=== PATIENT | male | born 1970 | race American Indian/Alaskan Native ===

== ENCOUNTER 2016-11-26 13:43 | Emergency (ER) | payer SELFPAY ==
--- NOTE | 2016-11-26 14:40 | Emergency Department Report ---
Chief Complaint: Extremity Injury, Lower Stated Complaint: RT FOOT PAIN Time Seen by Provider: 11/26/16 14:29 - HPI History of Present Illness: pt c/o foot pain, pt states he has a hx of gout - ROS Review of Systems: + knee pain - Exam Vital Signs: Vital Signs 11/26/16 14:23 Temperature 97.8 F Pulse Rate 60 Respiratory 18 Rate Blood Pressure 134/94 O2 Sat by Pulse 100 Oximetry Physical Exam: steady gait in triage MSE screening note: Focused history and physical exam performed. Due to findings the following was ordered: ED Disposition for MSE Condition: Stable
[2016-11-26] MEDS ORDERED: MOTRIN PO ONE (18:46)
--- NOTE | 2016-11-26 19:43 | XRay Report ---
FINAL REPORT EXAM: XR FOOT 3+V RT HISTORY: RIGHT FOOT pain with swelling TECHNIQUE: 3 views of right foot. PRIORS: None. FINDINGS: Diffuse osteopenia and degenerative change in the midfoot and great toe MTP joint. Mild plantar calcaneal spurring. Small and well-corticated, ossific density adjacent to the medial malleolar tip may represent old avulsion injury versus unfused or accessory ossicle. No apparent fracture or dislocation. Soft tissues grossly unremarkable. IMPRESSION: 1. No acute osseous abnormality. 2. Degenerative changes.
--- NOTE | 2016-11-26 20:05 | XRay Report ---
FINAL REPORT EXAM: XR KNEE 3V RT HISTORY: RIGHT KNEE pain with swelling TECHNIQUE: 3 views of right knee. PRIORS: None. FINDINGS: Moderate lateral, mild medial and patellofemoral joint space narrowing and mild marginal spurring in all 3 joint compartments. No apparent fracture or dislocation. Soft tissues grossly unremarkable. IMPRESSION: 1. No acute osseous abnormality. 2. Degenerative changes.
--- NOTE | 2016-11-26 22:01 | Emergency Department Report ---
Entered by SABRINA COULTER, acting as scribe for REDD PEREYRA NP. ED Lower Extremity HPI - General Chief Complaint: Extremity Injury, Lower Stated Complaint: RT FOOT PAIN Time Seen by Provider: 11/26/16 14:29 Source: patient Mode of arrival: Ambulatory Limitations: No Limitations - History of Present Illness Initial Comments: This is a 46 year old male nontoxic, well nourished in appearance, no acute signs of distress presents with aching right knee and foot pain for 3 days. Patient states he felt pain from his knee radiating down to his foot with unknown causes. Patient reports pain with swelling that is described as aching, but denies numbness, trauma, calf tenderness, headache, and CP. Patient also denies any calf pain, joint swelling, joint redness, recent surgeries, recent travels, long car rides. Patient denies any hospital stays. Patient states he works at a [employer] place where he is always on his feet. Patient started to work last month and symptoms developed ever since there. PMHx of arthritis, gout , and HTN. Denies any drug allergies. MD Complaint: knee injury, foot injury Onset/Timin -: days(s) Injury: Knee: Right, Foot: Right Type of Injury: unknown Place: work Severity: moderate Severity scale (0 -10): 4 Improves With: nothing Worsens With: weight bearing, movement Context: walking Associated Symptoms: able to partially bear weight, ambulatory. denies: snap/ pop sensation, swelling, numbness, tingling, unable to bear weight - Related Data Previous Rx's Medication Instructions Recorded Last Taken Type Ibuprofen [Motrin 600 MG tab] 600 mg PO Q8H PRN #20 tablet 11/26/16 Unknown Rx predniSONE [Deltasone] 20 mg PO BID #10 tab 11/26/16 Unknown Rx Allergies Allergy/AdvReac Type Severity Reaction Status Date / Time mag citrate Allergy Nausea Uncoded 11/26/16 14:22 ED Review of Systems Comment: All other systems reviewed and negative Constitutional: denies: chills, fever Eyes: denies: eye pain, eye discharge, vision change ENT: denies: ear pain, throat pain Respiratory: denies: cough, shortness of breath, wheezing Cardiovascular: denies: chest pain, palpitations Endocrine: no symptoms reported Gastrointestinal: denies: abdominal pain, nausea, diarrhea Genitourinary: denies: urgency, dysuria Musculoskeletal: denies: back pain, joint swelling, arthralgia Skin: denies: rash, lesions Neurological: denies: headache, weakness, paresthesias Psychiatric: denies: anxiety, depression Hematological/Lymphatic: denies: easy bleeding, easy bruising ED Past Medical Hx - Past Medical History Previous Medical History?: Yes Hx Hypertension: Yes Hx Arthritis: Yes Additional medical history: diverticulitis, Left kidney blockage, gout, Stomach masses - Surgical History Past Surgical History?: Yes Additional Surgical History: Left kidney removed, Abd hernia repair x 2, Colon resection, Reversal of colostomy - Social History Smoking Status: Former Smoker Substance Use Type: Alcohol, Marijuana - Medications Home Medications: Home Medications Medication Instructions Recorded Confirmed Last Taken Type Ibuprofen [Motrin 600 MG tab] 600 mg PO Q8H PRN #20 tablet 11/26/16 Unknown Rx predniSONE [Deltasone] 20 mg PO BID #10 tab 11/26/16 Unknown Rx ED Physical Exam - General Limitations: No Limitations General appearance: alert, in no apparent distress - Head Head exam: Present: atraumatic, normocephalic, normal inspection - Eye Eye exam: Present: normal appearance, PERRL, EOMI. Absent: scleral icterus, conjunctival injection, nystagmus, periorbital swelling, periorbital tenderness Pupils: Present: normal accommodation. Absent: irregular - ENT ENT exam: Present: normal exam, normal orophraynx, mucous membranes moist, TM's normal bilaterally, normal external ear exam - Neck Neck exam: Present: normal inspection, full ROM. Absent: tenderness, meningismus, lymphadenopathy, thyromegaly - Respiratory Respiratory exam: Present: normal lung sounds bilaterally. Absent: respiratory distress, wheezes, rales, rhonchi, stridor, chest wall tenderness, accessory muscle use, decreased breath sounds, prolonged expiratory - Cardiovascular Cardiovascular Exam: Present: regular rate, normal rhythm, normal heart sounds. Absent: bradycardia, tachycardia, irregular rhythm, systolic murmur, diastolic murmur, rubs, gallop - GI/Abdominal GI/Abdominal exam: Present: soft, normal bowel sounds. Absent: distended, tenderness, guarding, rebound, rigid, diminished bowel sounds - Rectal Rectal exam: Present: deferred - Extremities Exam Extremities exam: Present: normal inspection, full ROM, normal capillary refill. Absent: tenderness, pedal edema, joint swelling, calf tenderness - Expanded Lower Extremity Exam Right Hip exam: Present: normal inspection, full ROM, pelvic stability. Absent: tenderness, swelling, abrasion, laceration, ecchymosis, deformity, crepidus, dislocation, erythema, external rotation, internal rotation, shortening Upper Leg exam: Present: normal inspection, full ROM. Absent: tenderness, swelling, abrasion, laceration, ecchymosis, deformity, crepidus, dislocation, erythema Knee exam: Present: normal inspection, full ROM, tenderness, swelling, full knee extension. Absent: abrasion, laceration, ecchymosis, deformity, crepidus, dislocation, erythema, effusion, pain w/ pronation/supination, posterior draw sign, pain/laxity with valgus, pain/laxity with varus Lower Leg exam: Present: normal inspection, full ROM. Absent: tenderness, swelling, abrasion, laceration, ecchymosis, deformity, crepidus, dislocation, erythema, palpable cord, Filiberto's sign Ankle exam: Present: normal inspection, full ROM. Absent: tenderness, swelling , abrasion, laceration, ecchymosis, deformity, crepidus, dislocation, erythema, anterior draw sign Foot/Toe exam: Present: normal inspection, full ROM, tenderness, swelling. Absent: abrasion, laceration, ecchymosis, deformity, crepidus, dislocation, erythema, amputation, puncture wound, foreign body, calcaneal tenderness, tenderness at base of 5th metatarsal, nail avulsion, subungual hematoma Neuro vascular tendon exam: Present: no vascular compromise. Absent: pulse deficit, abnormal cap refill, motor deficit, sensory deficit, tendon deficit, extremity cold to touch, pallor, abnormal 2-point discrimination, decreased fine /light touch, foot drop, peroneal nerve deficit, significant pain with passive ROM of distal joint Gait: Positive: observed and normal 1 - swelling and pain - Back Exam Back exam: Present: normal inspection, full ROM. Absent: tenderness, CVA tenderness (R), CVA tenderness (L), muscle spasm, paraspinal tenderness, vertebral tenderness, rash noted - Neurological Exam Neurological exam: Present: alert, oriented X3, CN II-XII intact, normal gait, reflexes normal - Psychiatric Psychiatric exam: Present: normal affect, normal mood - Skin Skin exam: Present: warm, dry, intact, normal color. Absent: rash ED Course Vital Signs 11/26/16 14:23 Temperature 97.8 F Pulse Rate 60 Respiratory 18 Rate Blood Pressure 134/94 O2 Sat by Pulse 100 Oximetry - Reevaluation(s) Reevaluation #1: 11/26/16 19:16 Patient is able to speak in full sentences with no signs of distress noted. ED Lower Extremity MDM - Medical Decision Making Ed course: This is a 46-year-old male that presents with left knee strain and swelling 1- patient was examined by myself. Patient received ibuprofen. Due to patient having swelling with a history of gout I will treat patient with steroids. 2- patient received Solu-Medrol 40 mg IM and ED. 3- patient see prednisone 40 mg for 5 days discharge as well as ibuprofen for pain. 4- patient was instructed to follow-up with a primary care doctor in 3-5 days symptoms worsen and continue such as joint swelling, joint pain, joint redness, numbness, tingling, fever, chills chest pain or shortness of breath return to emergency room as was possible. 5- at time time of discharge, the patient does not seem toxic or ill in appearance. No acute signs of distress noted. Patient agrees to discharge treatment plan of care. No further questions noted by the patient. ED Disposition Clinical Impression: Knee pain Qualifiers: Chronicity: unspecified Laterality: right Qualified Code(s): M25.561 - Pain in right knee Foot pain Qualifiers: Laterality: left Qualified Code(s): M79.672 - Pain in left foot Disposition: -01 TO HOME OR SELFCARE Is pt being admited?: No Does the pt Need Aspirin: No Condition: Stable Instructions: Ibuprofen (By mouth), Prednisone (By mouth), Knee Pain (ED), Crutch Instructions (ED), Knee Immobilizer (ED) Additional Instructions: follow-up with a primary care doctor/orthopedic in 3-5 days symptoms worsen and continue such as joint swelling, joint pain, joint redness, numbness, tingling, fever, chills chest pain or shortness of breath return to emergency room as was possible. Take full course prednisone as prescribed. Prescriptions: Ibuprofen [Motrin 600 MG tab] 600 mg PO Q8H PRN #20 tablet PRN Reason: Pain predniSONE [Deltasone] 20 mg PO BID #10 tab Referrals: [facility] [Outside] - 3-5 Days [facility] [Outside] - 3-5 Days SAMANTHA KYLE JR, MD [Staff Physician] - 3-5 Days [facility], [Primary Care Provider] - 3-5 Days DIANA FALCON MD [Staff Physician] - 3-5 Days Forms: Work/School Release Form(ED) This documentation as recorded by the YFN del rosario PEARL,accurately reflects the service I personally performed and the decisions made by HAFSA bergman MARTIN, MICHAEL.
[2016-11-26 23:06] VITALS: BP 147/94
== END 2016-11-26 20:30 | disposition home or self-care (01) ==
LOC: ED 13:43
DX: M25.561 Pain in right knee (principal); M79.672 Pain in left foot; I10 Essential (primary) hypertension; F12.10 Cannabis abuse, uncomplicated
CPT/HCPCS: 29505; 73562; 73630; 96372; 99283; J2920